=== PATIENT | female | born 1930 | race Caucasian/White ===

== ENCOUNTER 2017-11-18 18:52 | Emergency (ER) | payer MEDICARE ==
[2017-11-18 20:00] LABS: Bilirubin Negative (Negative); Blood, Urine Moderate (Negative); Clarity Cloudy (Clear); Glucose, Urine (Dipstick) >=1000 mg/dL (Negative); Leukocyte Small (Negative); Nitrite Positive (Negative); Protein, Urine (Dipstick) > or equal to 300 mg/dL (Neg-Trace); Specific Gravity, Urine 1.015 (1.005-1.030); pH, Urine 5.5 (5.0-9.0)
[2017-11-18 20:04] LABS: Bacteria/HPF 4+ HPF (None Seen)
[2017-11-18 20:04] LABS: ALT (SGPT) 27 U/L (8-55); AST (SGOT) 25 U/L (5-34); Albumin 3.5 g/dL (3.4-4.8); Alkaline Phosphatase 139 U/L (40-150); Anion Gap 17 mmol/L (10-20); BUN (Urea Nitrogen) 27 mg/dL (9.8-20.1); Bilirubin, Total 0.4 mg/dL (0.2-1.2); Calc. Creatinine Clearance 0 mL/min (70-130); Calcium 9.9 mg/dL (7.8-10.44); Carbon Dioxide 27 mmol/L (23-31); Chloride 98 mmol/L (98-107); Estimated GFR-MDRD 40; Glucose 373 mg/dL (83-110); Lipase 13 U/L (8-78); Potassium 4.1 mmol/L (3.5-5.1); Protein, Total 7.5 g/dL (6.0-8.3); Sodium 138 mmol/L (136-145)
[2017-11-18 20:14] LABS: Hemoglobin 11.4 g/dL (12.0-16.0); Lymphocytes 4 % (21-51); MDiff Complete? YES; Mean Corpuscular HGB CONC 32.9 g/dL (32.0-36.0); Mean Corpuscular Volume 85.2 fl (81.0-99.0); Mean Platelet Volume 8.6 fL (7.4-10.4); Monocytes 10 % (0-10); Neutrophil 79 % (42-75); PLT Morphology Comment Appears Adequate; Platelet Count 192 thou/uL (130-400); RBC Distribution Width 13.1 % (11.5-14.5); Reactive Lymphocytes 7 % (0-10); Red Blood Cell (RBC) Count 4.06 mill/uL (4.20-5.40); White Blood Cell (WBC) Count 10.1 thou/uL (4.8-10.8)
[2017-11-18] MEDS ORDERED: Insulin Regular 300 UNITS/3 ML VIAL ONE (20:42)
[2017-11-18] MEDS ORDERED: Ciprofloxacin 500 MG TAB ONE (20:42)
== END 2017-11-18 20:55 | disposition home or self-care (01) ==
LOC: MADERS 18:52
DX: F43.20 Adjustment disorder, unspecified (principal); E11.65 Type 2 diabetes mellitus with hyperglycemia; E11.22 Type 2 diabetes mellitus with diabetic chronic kidney disease; I12.9 Hypertensive chronic kidney disease with stage 1 through stage 4 chronic kidney disease, or unspecified chronic kidney disease; N18.2 Chronic kidney disease, stage 2 (mild); N39.0 Urinary tract infection, site not specified; I25.10 Atherosclerotic heart disease of native coronary artery without angina pectoris; Z79.82 Long term (current) use of aspirin; Z79.84 Long term (current) use of oral hypoglycemic drugs; Z79.899 Other long term (current) drug therapy
CPT/HCPCS: 36416; 80053; 81001; 81003; 83690; 84443; 85025; 87077; 87086; 87186; 99284; 36415-59; J1815